=== PATIENT | male | born 1980 | race Caucasian/White ===

== ENCOUNTER → 2020-11-28 | Outpatient (CLI) | payer MEDICARE, OTHER ==
[~2020-11-28] VITALS: Ht 172.7 cm; Wt 108.9 kg
[2020-11-28 10:08] LABS: HEMOGLOBIN 15.7 gm/dl (14.0-17.5); RED BLOOD COUNT 5.42 M/UL (4.20-5.50); WHITE BLOOD COUNT 11.8 K/UL (4.5-11.0)
[2020-11-28 10:43] LABS: BUN/CREATININE RATIO 15 (0-10)
== END ==
LOC: OPSV 09:00
PROVIDERS: Internal Medicine Gastroenterology
DX: K50.10 Crohn's disease of large intestine without complications (principal); K63.2 Fistula of intestine; E66.01 Morbid (severe) obesity due to excess calories; Z93.2 Ileostomy status; Z90.49 Acquired absence of other specified parts of digestive tract
CPT/HCPCS: 36415; 80053; 85027; 86140; 96365; J3380; J7050

== ENCOUNTER → 2021-02-23 | Outpatient (CLI) | payer MEDICARE, OTHER ==
[2021-02-23 10:11] LABS: HEMOGLOBIN 14.9 gm/dl (14.0-17.5); RED BLOOD COUNT 5.89 M/UL (4.20-5.50); WHITE BLOOD COUNT 10.3 K/UL (4.5-11.0)
[2021-02-23 10:53] LABS: BUN/CREATININE RATIO 15 (0-10)
== END ==
LOC: OPSV 09:00
PROVIDERS: Internal Medicine Gastroenterology
DX: K50.10 Crohn's disease of large intestine without complications (principal); K63.2 Fistula of intestine; E66.01 Morbid (severe) obesity due to excess calories; Z93.2 Ileostomy status; Z90.49 Acquired absence of other specified parts of digestive tract
CPT/HCPCS: 36415; 80053; 85027; 86140; 96365; J3380; J7050

== ENCOUNTER → 2021-03-19 | Outpatient (CLI) | payer MEDICARE, OTHER | LOC: LAB 15:34 | DX: K63.2 Fistula of intestine (principal) | CPT/HCPCS: 36415; 83993 ==

== ENCOUNTER → 2021-04-28 | Outpatient (CLI) | payer MEDICARE, OTHER ==
[2021-04-28 08:56] LABS: HEMOGLOBIN 16.4 gm/dl (14.0-17.5); RED BLOOD COUNT 6.25 M/UL (4.20-5.50); WHITE BLOOD COUNT 11.3 K/UL (4.5-11.0)
[2021-04-28 09:20] LABS: BUN/CREATININE RATIO 20 (0-10)
== END ==
LOC: OPSV 04-20 09:00
PROVIDERS: Internal Medicine Gastroenterology
DX: K50.10 Crohn's disease of large intestine without complications (principal); Z93.2 Ileostomy status; Z90.49 Acquired absence of other specified parts of digestive tract
CPT/HCPCS: 80053; 85027; 86140; 96365; J3380; J7050

== ENCOUNTER → 2021-07-06 | Outpatient (CLI) | payer BC, OTHER ==
[~2021-07-06] VITALS: Ht 172.7 cm; Wt 108.9 kg
[2021-07-06 10:16] LABS: HEMOGLOBIN 15.9 gm/dl (14.0-17.5); RED BLOOD COUNT 6.01 M/UL (4.20-5.50); WHITE BLOOD COUNT 9.9 K/UL (4.5-11.0)
[2021-07-06 10:48] LABS: BUN/CREATININE RATIO 19 (0-10)
== END ==
LOC: OPSV 08:51
PROVIDERS: Internal Medicine Gastroenterology
DX: K50.10 Crohn's disease of large intestine without complications (principal); K63.2 Fistula of intestine; E66.01 Morbid (severe) obesity due to excess calories; Z90.49 Acquired absence of other specified parts of digestive tract; Z93.2 Ileostomy status
CPT/HCPCS: 36415; 80053; 85027; 86140; 96365; J3380; J7050

== ENCOUNTER → 2021-09-03 | Outpatient (CLI) | payer BC, OTHER ==
[~2021-09-03] VITALS: Ht 172.7 cm; Wt 108.9 kg
[2021-09-03 08:02] LABS: HEMOGLOBIN 16.2 gm/dl (14.0-17.5); RED BLOOD COUNT 5.76 M/UL (4.20-5.50); WHITE BLOOD COUNT 10.6 K/UL (4.5-11.0)
[2021-09-03 08:57] LABS: BUN/CREATININE RATIO 26 (0-10)
== END ==
LOC: OPSV 06:59
PROVIDERS: Internal Medicine Gastroenterology
DX: K50.10 Crohn's disease of large intestine without complications (principal); K63.2 Fistula of intestine; Z93.2 Ileostomy status
CPT/HCPCS: 36415; 80053; 85025; 86140; 96365; J3380; J7050

== ENCOUNTER → 2021-12-10 | Outpatient (CLI) | payer BC ==
[~2021-12-10] VITALS: Ht 172.7 cm; Wt 108.9 kg
[2021-12-10 07:38] LABS: HEMOGLOBIN 14.1 gm/dl (14.0-17.5); RED BLOOD COUNT 4.49 M/UL (4.20-5.50); WHITE BLOOD COUNT 10.2 K/UL (4.5-11.0)
[2021-12-10 08:19] LABS: BUN/CREATININE RATIO 30 (0-10)
== END ==
LOC: OPSV 11-26 09:00
PROVIDERS: Internal Medicine Gastroenterology
DX: K50.10 Crohn's disease of large intestine without complications (principal); K63.2 Fistula of intestine; Z93.2 Ileostomy status
CPT/HCPCS: 80053; 85025; 86140; 96365; J3380; J7050

== ENCOUNTER → 2022-01-15 | Outpatient (CLI) | payer BC | LOC: KOH-I 09:41 | DX: R60.9 Edema, unspecified (principal); R05.9 Cough, unspecified; R06.00 Dyspnea, unspecified; R53.83 Other fatigue | CPT/HCPCS: 71046 ==

== ENCOUNTER 2022-02-06 17:57 | Inpatient (IN) | payer MEDICARE, OTHER ==
[~2022-02-06] VITALS: Ht 172.7 cm; Wt 111.1 kg
[2022-02-06 19:35] LABS: HEMOGLOBIN 16.4 gm/dl (14.0-17.5); RED BLOOD COUNT 5.14 M/UL (4.20-5.50); WHITE BLOOD COUNT 14.6 K/UL (4.5-11.0)
[2022-02-06 19:58] LABS: BUN/CREATININE RATIO 30 (0-10)
[2022-02-07 03:25] LABS: HEMOGLOBIN 15.4 gm/dl (14.0-17.5); RED BLOOD COUNT 4.99 M/UL (4.20-5.50); WHITE BLOOD COUNT 12.6 K/UL (4.5-11.0)
[2022-02-07 03:33] LABS: BUN/CREATININE RATIO 30 (0-10)
[2022-02-07] MEDS ORDERED: FUROSEMIDE20 MG PO (12:18)
[2022-02-07] MEDS ORDERED: POTASSIUM CHLO10 ME1 PO (12:18)
[2022-02-07] MEDS ORDERED: VRAYLAR1.5 MG PO (12:19)
[2022-02-07] MEDS ORDERED: OMEPRAZOLE40 MG PO (12:20)
[2022-02-07] MEDS ORDERED: VISTARIL50 MG PO (12:21)
[2022-02-07] MEDS ORDERED: ENTYVIO 300 MG300 MG INJ (12:22)
[2022-02-08 06:47] LABS: BUN/CREATININE RATIO 23 (0-10)
--- NOTE | 2022-02-08 11:50 | NUR ---
patient refused to restart IV and stated he is going home today whether with dr. corbin or not. aware
[2022-02-08 13:05] LABS: HEMOGLOBIN 17.4 gm/dl (14.0-17.5); RED BLOOD COUNT 5.55 M/UL (4.20-5.50); WHITE BLOOD COUNT 6.7 K/UL (4.5-11.0)
[2022-02-08] MEDS ORDERED: ZYVOX600 MG PO (13:57)
== END 2022-02-08 14:00 | disposition home or self-care (01) | DRG 603 ==
LOC: ER1 17:57 → M/S 20:25 → CDU 20:25 → M/S 22:18
PROVIDERS: Emergency Medicine; Internal Medicine Infectious Disease; ADMIT Internal Medicine
PROC: 0H9LXZZ Drainage of Left Lower Leg Skin, External Approach (ICD-10-PCS; principal; 2022-02-06)
DX: L02.416 Cutaneous abscess of left lower limb (principal); K21.9 Gastro-esophageal reflux disease without esophagitis; B95.62 Methicillin resistant Staphylococcus aureus infection as the cause of diseases classified elsewhere; L03.116 Cellulitis of left lower limb; Z20.822 Contact with and (suspected) exposure to COVID-19; Z93.2 Ileostomy status; Z79.899 Other long term (current) drug therapy
CPT/HCPCS: 10060; 36415; 80048; 80053; 80202; 83605; 85025; 86140; 87040; 87070; 87077; 87186; 87205; 96372; 96374; 96375; 99284; J0295; J1650; J2270; J3370; J7070; Q0177; U0002

== ENCOUNTER → 2022-04-16 | Outpatient (CLI) | payer MEDICARE ==
[~2022-04-16] MED LIST: ENTYVIO 300 MG300 MG INJ; FUROSEMIDE20 MG PO; OMEPRAZOLE40 MG PO; POTASSIUM CHLO10 ME1 PO; VISTARIL50 MG PO; VRAYLAR1.5 MG PO; ZYVOX600 MG PO
[2022-04-16 13:50] LABS: HEMOGLOBIN 15.9 gm/dl (14.0-17.5); RED BLOOD COUNT 5.22 M/UL (4.20-5.50); WHITE BLOOD COUNT 11.8 K/UL (4.5-11.0)
[2022-04-16 14:41] LABS: BUN/CREATININE RATIO 31 (0-10)
== END ==
LOC: OPSV 04-15 08:00
PROVIDERS: Internal Medicine Gastroenterology
DX: K50.10 Crohn's disease of large intestine without complications (principal); K63.2 Fistula of intestine; Z93.2 Ileostomy status
CPT/HCPCS: 80053; 85025; 86140; 96365; J3380; J7050

== ENCOUNTER 2022-05-25 19:53 | Emergency (ER) | payer MEDICARE, MEDICAID ==
[2022-05-25 21:14] LABS: HEMOGLOBIN 16.1 gm/dl (14.0-17.5); RED BLOOD COUNT 4.99 M/UL (4.20-5.50); WHITE BLOOD COUNT 14.2 K/UL (4.5-11.0)
[2022-05-25 21:34] LABS: BUN/CREATININE RATIO 27 (0-10)
[2022-05-26] MEDS ORDERED: ONDANSETRON ODT4 MG PO (02:17)
== END 2022-05-26 02:30 | disposition home or self-care (01) ==
LOC: ER1 19:53
PROVIDERS: Physician Assistant
DX: R11.2 Nausea with vomiting, unspecified (principal); F17.210 Nicotine dependence, cigarettes, uncomplicated; Z20.822 Contact with and (suspected) exposure to COVID-19
CPT/HCPCS: 0240U; 71046; 80053; 83690; 85025; 96374; 99284; J2405